=== PATIENT | female | born 1950 | race Caucasian/White ===

== ENCOUNTER 2020-05-13 09:26 | Inpatient (IN) ==
[~2020-05-13 09:26] MED LIST: Acetaminophen IV 1,000 MG/100 ML BAG IVPB ONE; Famotidine 20 MG/2 ML VIAL IVP ONE
[2020-05-13] MEDS ORDERED: CeFAZolin Syr 2,000MG/20 ML 2,000 MG/20 ML SYRINGE IVPB ONE (09:38)
[2020-05-13] MEDS ORDERED: Ringers Solution, Lactated 1,000 ML IVC SCH ×2 (09:45→14:54)
[2020-05-13] MEDS ORDERED: *HR* FentaNYL (PF) 100 MCG/2 ML VIAL ONE (10:10)
[2020-05-13] MEDS ORDERED: Ropivacaine/PF 0.5% 30 ML VIAL ONE (10:11)
[2020-05-13] MEDS ORDERED: *HR* Midazolam HCl 2 MG/2 ML VIAL ONE (10:17)
[2020-05-13] MEDS ORDERED: Ethanol\\Acetic Acid\\Na Ace\\Ben 1,000 ML IRRIG.SOLN IR ONE ×2 (11:29→11:32)
[2020-05-13] MEDS ORDERED: Vancomycin 1,000 MG VIAL ONE (11:30)
[2020-05-13] MEDS ORDERED: TOTAL JOINT MIXTURE (100ML) INTRAART ONE (11:45)
[2020-05-13] MEDS ORDERED: Povidone-Iodine 45 ML, Sodium Chloride IRRigation 1,000 ML IR ONE (11:45)
[2020-05-13] MEDS ORDERED: Tranexamic Acid 1,000 MG/10 ML VIAL ONE (12:00)
[2020-05-13] MEDS ORDERED: *HR* Propofol 200 MG/20 ML VIAL IVP ONE ×3 (12:26→13:07)
[2020-05-13 14:30] LABS: Hemoglobin 11.5 g/dL (11.5-15.4)
[2020-05-13] MEDS ORDERED: Naloxone 0.4 MG/ML INJ IVP PRN (14:54)
[2020-05-13] MEDS ORDERED: *HR* Dextrose 50 % in Water (Vial) 50 ML VIAL IVP PRN (14:54)
[2020-05-13] MEDS ORDERED: *HR* Promethazine 25 MG/ML VIAL IM PRN (14:54)
[2020-05-13] MEDS ORDERED: *HR* OxyCODONE/APAP 5/325 TABLET PO PRN (14:54)
[2020-05-13] MEDS ORDERED: MOM Conc 10 ML UD.LIQ PO PRN (14:54)
[2020-05-13] MEDS ORDERED: Ondansetron 4 MG/2 ML VIAL IVP PRN (14:54)
[2020-05-13] MEDS ORDERED: D5% in Water 1,000 ML IVC PRN (14:54)
[2020-05-13] MEDS ORDERED: Sennosides 8.6 MG TABLET PO PRN (14:54)
[2020-05-13] MEDS ORDERED: Dextrose Gel 15 GM/37.5 ML TUBE PO PRN ×2 (14:54)
[2020-05-13] MEDS: Ascorbic Acid 500 MG TABLET PO SCH (15:48)
[2020-05-13] MEDS: *HR* OxyCODONE Immed Rel 5 MG TABLET PO PRN (15:49)
[2020-05-13] MEDS: Insulin LISPRO 300 UNITS/3 ML VIAL SQ SCH (15:53)
[2020-05-13] MEDS: CeFAZolin 2 GM/120 ML BAG IVPB SCH (19:45)
[2020-05-13] MEDS ORDERED: Insulin LISPRO 300 UNITS/3 ML VIAL SQ SCH (21:00)
[2020-05-14] MEDS: *HR* OxyCODONE Immed Rel 5 MG TABLET PO PRN (02:31)
[2020-05-14 02:52] LABS: Basophils % 0.1 %; Hematocrit 32.9 % (35.3-44.9); Hemoglobin 10.7 g/dL (11.5-15.4); Immature Granulocytes % 0.6 % (0-4); Lymphocytes # 0.9 K/mcL (0.6-4.6); Lymphocytes % 5.8 %; Mean Corpuscular HGB Conc 32.5 g/dL (31.6-35.5); Mean Corpuscular Hemoglobin 30.7 pg (28.0-33.3); Mean Corpuscular Volume 94.5 fL (83.0-100.0); Mean Platelet Volume 10.4 fL (9.4-12.4); Monocytes # 0.7 K/mcL (0.0-1.3); Monocytes % 4.5 %; Neutrophils # 14.2 K/mcL (1.6-8.9); Platelet Count 240 K/mcL (140-400); Red Blood Count 3.48 M/mcL (3.82-4.97); Red Cell Distribution Width 12.7 % (11.5-14.5); White Blood Count 15.9 K/mcL (4.3-11.1)
[2020-05-14 03:11] LABS: Calcium 8.5 mg/dL (8.6-10.3); Potassium 4.7 mEq/L (3.5-5.1)
[2020-05-14] MEDS: CeFAZolin 2 GM/120 ML BAG IVPB SCH (03:19)
[2020-05-14] MEDS: Insulin LISPRO 300 UNITS/3 ML VIAL SQ SCH ×2 (07:28→11:38)
[2020-05-14] MEDS: Ascorbic Acid 500 MG TABLET PO SCH (07:57)
[2020-05-14] MEDS ORDERED: FOLIC PO SCH (09:00)
[2020-05-14] MEDS ORDERED: VITK PO SCH (09:00)
[2020-05-14] MEDS ORDERED: IRON PO SCH (09:00)
[2020-05-14] MEDS ORDERED: Cholecalciferol (D-3) 1,000 UNIT (25MCG) TABLET PO SCH (09:00)
[2020-05-14] MEDS ORDERED: MV CALCIUM MIN PO SCH (09:00)
[2020-05-14] MEDS ORDERED: Loratadine/Pseudophed (12 HR) 1 EACH TABLET PO SCH (09:00)
[2020-05-14] MEDS ORDERED: Fluticasone Propionate Nasal 50 MCG/SPRAY BOTTLE NS SCH (09:00)
[2020-05-14] MEDS ORDERED: [UNRECOGNIZED DRUG - OTHER] PO SCH (09:00)
[2020-05-14] MEDS ORDERED: Multivit/Ca/Min/Fe/FA 1 TAB TABLET PO SCH (09:00)
[2020-05-14] MEDS ORDERED: FLUoxetine 20 MG CAPSULE PO SCH (09:00)
[2020-05-14] MEDS ORDERED: Aspirin Enteric Coated 81 MG Tablet PO SCH ×2 (09:00)
[2020-05-14 11:18] VITALS: BP 134/75
== END 2020-05-14 14:55 | disposition home or self-care (01) | DRG 467 ==
LOC: SAMDAY 09:26 → 3NENU 14:52
PROVIDERS: ADMIT Orthopaedic Surgery; ATTEND Orthopaedic Surgery

== ENCOUNTER 2021-07-10 06:23 | Inpatient (IN) ==
[~2021-07-10 06:23] MED LIST changes: -Acetaminophen IV 1,000 MG/100 ML BAG IVPB ONE; -Famotidine 20 MG/2 ML VIAL IVP ONE; +Povidone-Iodine 45 ML, Sodium Chloride IRRigation 1,000 ML IR ONE; +TOTAL JOINT MIXTURE (100ML) INTRAART ONE
[2021-07-10] MEDS ORDERED: Lidocaine -MPF 2% 5 ML VIAL ONE (06:40)
[2021-07-10] MEDS ORDERED: *HR* Rocuronium Bromide 50 MG/5 ML VIAL ONE ×2 (06:40→09:22)
[2021-07-10] MEDS ORDERED: *HR* Propofol 200 MG/20 ML VIAL IVP ONE (06:40)
[2021-07-10] MEDS ORDERED: Ringers Solution, Lactated 1,000 ML IVC SCH ×3 (06:45→13:50)
[2021-07-10] MEDS ORDERED: CeFAZolin Syr 2,000MG/20 ML 2,000 MG/20 ML SYRINGE IVPB ONE (06:45)
[2021-07-10] MEDS ORDERED: Gentamicin 370 MG in 0.9 % Sodium Chloride 100 ML IVPB ONE (06:46)
[2021-07-10] MEDS ORDERED: *HR* FentaNYL (PF) 100 MCG/2 ML VIAL IVP PRN (07:00)
[2021-07-10] MEDS ORDERED: Acetaminophen IV 1,000 MG/100 ML BAG IVPB ONE (07:00)
[2021-07-10] MEDS ORDERED: Ondansetron 4 MG/2 ML VIAL IVP PRN ×3 (07:00→13:50)
[2021-07-10] MEDS ORDERED: Famotidine 20 MG/2 ML VIAL IVP ONE (07:00)
[2021-07-10] MEDS ORDERED: *HR* Midazolam HCl 2 MG/2 ML VIAL ONE (07:05)
[2021-07-10] MEDS ORDERED: *HR* FentaNYL (PF) 100 MCG/2 ML VIAL ONE (07:06)
[2021-07-10] MEDS ORDERED: ROPIVACAINE/PF/NS 0.25% 1 EACH SYRINGE INTRAART ONE (07:06)
[2021-07-10] MEDS ORDERED: Ropivacaine/PF 0.5% 30 ML VIAL ONE (07:06)
[2021-07-10] MEDS ORDERED: Vancomycin 1,000 MG VIAL ONE (07:08)
[2021-07-10] MEDS ORDERED: Ethanol\\Acetic Acid\\Na Ace\\Ben 1,000 ML IRRIG.SOLN IR ONE (07:08)
[2021-07-10] MEDS ORDERED: Tobramycin Sulf (Sterile) 1.2 GM VIAL ONE (07:48)
[2021-07-10] MEDS ORDERED: EPHEDrine 50 MG/ML VIAL ONE (08:05)
[2021-07-10] MEDS ORDERED: Sugammadex Sodium 200 MG/2 ML VIAL IV ONE (12:37)
[2021-07-10] MEDS ORDERED: *HR* OxyCODONE Immed Rel 5 MG TABLET PO PRN (13:26)
[2021-07-10] MEDS ORDERED: Naloxone 0.4 MG/ML INJ IVP PRN ×2 (13:26→13:50)
[2021-07-10] MEDS ORDERED: Sennosides 8.6 MG TABLET PO PRN ×2 (13:26→13:50)
[2021-07-10] MEDS ORDERED: *HR* Promethazine 25 MG/ML VIAL IM PRN ×2 (13:26→13:50)
[2021-07-10] MEDS ORDERED: MOM Conc 10 ML UD.LIQ PO PRN ×2 (13:26→13:50)
[2021-07-10] MEDS: *HR* HYDROmorphone PF 0.5 MG/0.5 ML SYRINGE IVP PRN ×2 (13:28→13:37)
[2021-07-10] MEDS ORDERED: *HR* HYDROmorphone PF 0.5 MG/0.5 ML SYRINGE IVP PRN (13:50)
[2021-07-10] MEDS: *HR* OxyCODONE Immed Rel 5 MG TABLET PO PRN (14:36)
[2021-07-10] MEDS ORDERED: CeFAZolin 2 GM/120 ML BAG IVPB SCH (16:00)
[2021-07-10] MEDS ORDERED: Ascorbic Acid 500 MG TABLET PO SCH (17:00)
[2021-07-10] MEDS: Ascorbic Acid 500 MG TABLET PO SCH (17:50)
[2021-07-10] MEDS: Ketorolac 30 MG/ML VIAL IVP SCH ×2 (17:51→23:46)
[2021-07-10] MEDS: CeFAZolin 2 GM/120 ML BAG IVPB SCH ×2 (17:51→23:46)
[2021-07-10] MEDS ORDERED: Ketorolac 30 MG/ML VIAL IVP SCH (18:00)
[2021-07-11] MEDS: *HR* OxyCODONE Immed Rel 5 MG TABLET PO PRN ×3 (02:20→20:18)
[2021-07-11 05:24] LABS: Basophils % 0.1 %; Eosinophils % 0.1 %; Hematocrit 31.2 % (35.3-44.9); Immature Granulocytes % 0.4 % (0-4); Lymphocytes # 1.6 K/mcL (0.6-4.6); Lymphocytes % 11.3 %; Mean Corpuscular HGB Conc 32.4 g/dL (31.6-35.5); Mean Corpuscular Hemoglobin 31.4 pg (28.0-33.3); Mean Corpuscular Volume 96.9 fL (83.0-100.0); Mean Platelet Volume 10.4 fL (9.4-12.4); Monocytes % 7.4 %; Platelet Count 181 K/mcL (140-400); Red Blood Count 3.22 M/mcL (3.82-4.97); Red Cell Distribution Width 13.2 % (11.5-14.5); Segmented Neutrophils % 80.7 %
[2021-07-11] MEDS: Ketorolac 30 MG/ML VIAL IVP SCH ×4 (05:26→23:23)
[2021-07-11 05:32] LABS: BUN/Creatinine Ratio 23 (6-26); Blood Urea Nitrogen 24 mg/dL (8-23); Carbon Dioxide 26 mEq/L (23-29); Chloride 103 mEq/L (98-107); Glucose 106 mg/dL (70-105); Osmolality,Calculated 286 (280-300); Potassium 4.3 mEq/L (3.5-5.1); Sodium 136 mEq/L (136-145); eGFR For African Americans > 60 (> 60); eGFR For Non-African Americans 51 (> 60)
[2021-07-11 05:38] LABS: Hemoglobin 10.1 g/dL (11.5-15.4); Neutrophils # 11.1 K/mcL (1.6-8.9); White Blood Count 13.7 K/mcL (4.3-11.1)
[2021-07-11] MEDS: Ascorbic Acid 500 MG TABLET PO SCH ×2 (08:12→15:58)
[2021-07-11] MEDS: FLUoxetine 20 MG CAPSULE PO SCH (08:12)
[2021-07-11] MEDS: Multivit/Ca/Min/Fe/FA 1 TAB TABLET PO SCH (08:13)
[2021-07-11] MEDS: Cholecalciferol (D-3) 1,000 UNIT (25MCG) TABLET PO SCH (08:13)
[2021-07-11] MEDS ORDERED: IRON PO SCH ×2 (09:00)
[2021-07-11] MEDS ORDERED: [UNRECOGNIZED DRUG - OTHER] PO SCH ×2 (09:00)
[2021-07-11] MEDS ORDERED: Multivit/Ca/Min/Fe/FA 1 TAB TABLET PO SCH (09:00)
[2021-07-11] MEDS ORDERED: NON-FORMULARY MEDICATION 1 EACH EACH (Biotin 10,000 MCG) PO SCH (09:00)
[2021-07-11] MEDS ORDERED: VITK PO SCH ×2 (09:00)
[2021-07-11] MEDS ORDERED: NON-FORMULARY MEDICATION 1 EACH EACH (Albuterol Sulfate 8.5 GM Hfa.Aer.Ad) IH SCH (09:00)
[2021-07-11] MEDS ORDERED: FOLIC PO SCH ×2 (09:00)
[2021-07-11] MEDS ORDERED: MV CALCIUM MIN PO SCH ×2 (09:00)
[2021-07-11] MEDS ORDERED: NON-FORMULARY MEDICATION 1 EACH EACH (Omega-3/Dha/Epa/Fish Oil [Fish Oil 1,000 Mg Softgel] PO SCH ×2 (09:00)
[2021-07-11] MEDS ORDERED: FLUOXETINE HCL 60 MG PO SCH (09:00)
[2021-07-11] MEDS ORDERED: Fluticasone Propionate Nasal 50 MCG/SPRAY BOTTLE NS SCH (09:00)
[2021-07-11] MEDS ORDERED: NON-FORMULARY MEDICATION 1 EACH EACH (Biotin 10,000 MCG Capsule) PO SCH (09:00)
[2021-07-11] MEDS ORDERED: NON-FORMULARY MEDICATION 1 EACH EACH (Cholecalciferol (Vitamin D3) [Vitamin D3] 25 MCG Cap PO SCH (09:00)
[2021-07-11] MEDS: Aspirin Enteric Coated 81 MG Tablet PO SCH ×2 (13:02→20:18)
[2021-07-11] MEDS ORDERED: Aspirin Enteric Coated 325 MG Tablet PO SCH (13:28)
[2021-07-11] MEDS: Fluticasone Propionate Nasal 50 MCG/SPRAY BOTTLE NS SCH (15:59)
[2021-07-12 00:55] LABS: Basophils # 0.1 K/mcL (0.0-0.2); Basophils % 0.6 %; Eosinophils # 0.5 K/mcL (0.0-0.6); Eosinophils % 6.3 %; Hematocrit 31.1 % (35.3-44.9); Hemoglobin 9.8 g/dL (11.5-15.4); Immature Granulocytes % 0.5 % (0-4); Lymphocytes # 1.8 K/mcL (0.6-4.6); Lymphocytes % 21.3 %; Mean Corpuscular HGB Conc 31.5 g/dL (31.6-35.5); Mean Corpuscular Hemoglobin 31.1 pg (28.0-33.3); Mean Corpuscular Volume 98.7 fL (83.0-100.0); Mean Platelet Volume 10.2 fL (9.4-12.4); Monocytes # 0.8 K/mcL (0.0-1.3); Monocytes % 9.6 %; Neutrophils # 5.1 K/mcL (1.6-8.9); Platelet Count 156 K/mcL (140-400); Red Blood Count 3.15 M/mcL (3.82-4.97); Red Cell Distribution Width 13.4 % (11.5-14.5); Segmented Neutrophils % 61.7 %; White Blood Count 8.3 K/mcL (4.3-11.1)
[2021-07-12 01:14] LABS: Calcium 8.2 mg/dL (8.6-10.3); Potassium 4.3 mEq/L (3.5-5.1)
[2021-07-12] MEDS: Ketorolac 30 MG/ML VIAL IVP SCH ×2 (05:49→12:11)
[2021-07-12 07:15] VITALS: TEMP 97.6
[2021-07-12] MEDS: FLUoxetine 20 MG CAPSULE PO SCH (07:55)
[2021-07-12] MEDS: Ascorbic Acid 500 MG TABLET PO SCH (07:56)
[2021-07-12] MEDS: Fluticasone Propionate Nasal 50 MCG/SPRAY BOTTLE NS SCH (07:56)
[2021-07-12] MEDS: Aspirin Enteric Coated 81 MG Tablet PO SCH (07:56)
[2021-07-12] MEDS: Multivit/Ca/Min/Fe/FA 1 TAB TABLET PO SCH (07:56)
[2021-07-12] MEDS: Cholecalciferol (D-3) 1,000 UNIT (25MCG) TABLET PO SCH (07:56)
[2021-07-12] MEDS ORDERED: NON-FORMULARY MEDICATION 1 EACH EACH (Esomeprazole Magnesium [Nexium] 40 MG Capsule.Dr) PO SCH (09:00)
[2021-07-12 11:04] VITALS: BP 102/51; PULSE 73; O2SAT 95
== END 2021-07-12 14:35 | disposition home or self-care (01) | DRG 467 ==
LOC: SDCAOSI 06:23 → 4WAOSI 13:54
PROVIDERS: ADMIT Orthopaedic Surgery; ATTEND Orthopaedic Surgery